=== PATIENT | male | born 1995 | race Caucasian/White ===

== ENCOUNTER 2018-07-12 18:15 | Emergency (ER) | payer SELFPAY ==
[2018-07-12 18:25] VITALS: BP 138/89; PULSE 100; RESP 20; TEMP 36.8; O2SAT 99
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
[2018-07-12] MEDS: Ketorolac 60 MG/2 ML VIAL IM (20:21)
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
[2018-07-12] MEDS: Lidocaine 5% Patch 2 PATCH TP (21:30)
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
== END 2018-07-12 21:39 | disposition home or self-care (01) ==
PROVIDERS: Emergency Provider Emergency Medicine; PCP Family Medicine
DX: S02.2XXA Fracture of nasal bones, initial encounter for closed fracture (principal); S22.31XA Fracture of one rib, right side, initial encounter for closed fracture; S22.32XA Fracture of one rib, left side, initial encounter for closed fracture; H11.32 Conjunctival hemorrhage, left eye; S00.83XA Contusion of other part of head, initial encounter; Y04.0XXA Assault by unarmed brawl or fight, initial encounter
CPT/HCPCS: 71250; 96372; 99284; 70450; 70486; J1885

== ENCOUNTER 2018-08-10 18:08 | Emergency (ER) | payer SELFPAY ==
[2018-08-10 18:11] VITALS: BP 142/80; PULSE 90; RESP 20; TEMP 36.8; O2SAT 97
--- NOTE | 2018-08-10 18:33 | ED.GENADUL_ITS ---
Discharge Plan Disposition Patient Disposition: HOME Condition: Stable Discharge Details Chief Complaint: Sorethroat Clinical Impression: Acute streptococcal pharyngitis Primary Care Provider: Emilee Turner ED Provider: Joey Romero Home Meds and New Rx's Prescriptions: New clindamycin HCl 150 mg capsule 450 mg PO TID 7 Days Qty: 63 RF: 0 No Action ibuprofen 600 mg tablet 600 mg PO TID PRN (Reason: pain) Qty: 30 RF: 0 Discharge Instructions Instructions: Pharyngitis (ED) Additional Instructions: if not better in a week see your primary care provider if you have difficulty breathing or inability to swallow liquids return to the emergency department Medical Decision Making 23 yo male who denies chronic med problems comes in with sore throat for about 5 days. Has posterior pharynx erythema, midline uvula, no restricted neck mvoements and no pain over hyoid, no stridor or drooling and speaking in full sentences, no findings to suggest rpa vs seating captain vs epiglotitis. His strep test is positive, will start abx. He states he can't take any med in pcn family due to anaphylaxxis, will tx with clindamycin Differential Diagnosis strep, viral pharyngitis HPI General Mode of arrival: ambulatory . Date/Time Provider Initiated Documentation: 08/10/18 18:29 . Limitations to Documentation: no limitations . Information obtained by: patient . History of Present Illness 23 year old M presents to the emergency department with the chief complaint of sore throat, described as moderate, Quality is described as aching, and is localized to the mouth. Patient reports no radiation. Patient started experiencing this day(s) (6) and it has been constant. No relieving factors improve symptom(s), No exacerbating factors reported . Patient did receive the following treatments prior to arrival, none Related Data Home Medications Medication Instructions Recorded Confirmed ibuprofen 600 mg PO TID PRN #30 tab 07/12/18 08/10/18 clindamycin HCl 450 mg PO TID 7 Days #63 cap 08/10/18 Previous Rx's Medication Instructions Recorded ibuprofen 600 mg PO TID PRN #30 tab 07/12/18 clindamycin HCl 450 mg PO TID 7 Days #63 cap 08/10/18 Allergies Allergy/AdvReac Type Severity Reaction Status Date / Time cefixime [From Suprax] Allergy Severe Anaphylaxsi Unverified 08/10/18 18:12 s General Stated Complaint: Sorethroat MICHOACANO: 4 Review of Systems Review of Systems All systems reviewed & are unremarkable except as noted in HPI and below Constitutional Denies chills, Denies fever(s) and Denies weakness Cardiovascular Denies chest pain and Denies dyspnea Respiratory Denies cough and Denies dyspnea Gastrointestinal Denies abdominal pain, Denies nausea and Denies vomiting Integumentary/Breasts Denies rash Neurologic Denies weakness [facility] Social History Smoking/Tobacco Use Status: Current every day Alcohol Intake: current Alcohol Intake frequency: a few times a week Substance use type: marijuana Do you feel safe at home: Yes Do you feel safe in your relationship?: Yes Exam Const General: no acute distress Orientation: alert HENMT Head: normal to inspection Ears: external ears normal General nose exam: external nose normal Mouth: moist mucous membranes Eyes General: appearance normal, both eyes and all related structures Neck Neck: normal visual inspection Resp Effort & Inspection: normal respiratory effort and able to speak in complete sentences Cardio Rate: regular rate Skin General skin exam: no rashes or lesions noted Neuro General: alert and oriented x3 Extrem General: normal to inspection Psych Mental Status: mental status grossly normal Course Vital Signs Temperature 36.8 C 08/10/18 18:11 Pulse 90 08/10/18 18:11 Respiratory Rate 20 08/10/18 18:11 Blood Pressure 142/80 H 08/10/18 18:11 Pulse Oximetry 97 08/10/18 18:11 Temperature 36.8 C 08/10/18 18:11 Temperature Source Temporal Artery Scan 08/10/18 18:11 Pulse 90 08/10/18 18:11 Respiratory Rate 20 08/10/18 18:11 Respiratory Effort Non-Labored 08/10/18 18:11 Blood Pressure 142/80 H 08/10/18 18:11 Pulse Oximetry 97 08/10/18 18:11 Pain Level 0 08/10/18 18:11 Lab/Test Results Lab/Test Results: POC Strep Test-MALIK(Rapid) Start: 08/10/18 18:17 Freq: Status: Active Protocol: Document 08/10/18 18:24 CDG (Rec: 08/10/18 18:24 CDG [id number]) Strep test-MALIK(Rapid)-POC POC-Strep test-MALIK (Rapid) Positive POC-Strep test-MALIK (Rapid) Positive
[2018-08-10 18:57] VITALS: BP 142/80; PULSE 90; RESP 20; TEMP 36.8; O2SAT 97
== END 2018-08-10 18:50 | disposition home or self-care (01) ==
PROVIDERS: Emergency Provider Emergency Medicine; PCP Family Medicine
DX: J02.0 Streptococcal pharyngitis (principal); F17.210 Nicotine dependence, cigarettes, uncomplicated
CPT/HCPCS: 87880; 99283

== ENCOUNTER 2018-10-10 03:09 | Emergency (ER) | payer SELFPAY ==
[2018-10-10] VITALS (10 sets, daily range): BP systolic 129–134; BP diastolic 69–73; PULSE 69–100; RESP 11–16; TEMP 36.7; O2SAT 96–100
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
--- NOTE | 2018-10-10 03:20 | ED.GENADUL_ITS ---
Discharge Plan Disposition Patient Disposition: HOME Condition: Stable Discharge Details Chief Complaint: Chest Pain Clinical Impression: Musculoskeletal chest pain Primary Care Provider: Emilee Turner ED Provider: Joey Romero Home Meds and New Rx's Prescriptions: No Action ibuprofen 600 mg tablet 600 mg PO TID PRN (Reason: pain) Qty: 30 RF: 0 Discharge Instructions Instructions: Lorazepam (By mouth) Additional Instructions: Your pain seemed most likely a muscle spasm being exacerbated by some anxiety Do not drink alcohol or drive if you take the lorazepam you can also take 1000mg tylenol and 600mg ibuprofen every 6 hours for discomfort if pain significantly worsens, you have difficulty breathing or you feel more ill return to the emergency department Medical Decision Making 23 yo male who states he has some hx of anxiety though not on meds, denies any chronic med problems, comes in with chief complaint of left sided chest pain he describes as a fist in the chest. He was pacing around all night debating wether to come in per pt. He denies fevers, sob, cough, has pain with palpation to the left side of his chest. Also notes tingling in the hands and feet. No abdominal tenderness. HE does appear anxious on exam and given the tingling in the hands and feet fits with likely anxiety/panic attack, will tx with ativan and reassess. EKG unremarkable, do not feel further workup for acs indicated, heart score is 1 with smoking hx and symptoms not typical of acs. WElls low and perc negative. No tearing back pain and normal vascular exam so doubt dissection. Will obtain cxr to eval for possble rib fx though unlikely given no trauma. HAs clear lungs so doubt ptx pt feeling better after ativan, ecg and cxr unremarkable on my read. Suspect either muscle spasm vs anxiety. Will d/c home and return precautions given Differential Diagnosis anxiety, muscle spasm, panic attack ECG Data Attestation: I personally reviewed and interpreted this ECG (s) as follows: Prior ECG tracings: not available for review Interpretation: sinus rhythm, rate of 70, pr 142, no acute st t wave ischemic findings HPI General Mode of arrival: ambulatory . Date/Time Provider Initiated Documentation: 10/10/18 03:10 . Limitations to Documentation: no limitations . Information obtained by: patient . History of Present Illness 23 year old M presents to the emergency department with the chief complaint of left sided chest pain, described as moderate, Quality is described as aching, Patient reports no radiation. Patient started experiencing this hour(s) (2) and it has been constant. No relieving factors improve symptom(s), No exacerbating factors reported . Patient notes other (hand and feet tingling). Patient did receive the following treatments prior to arrival, none Related Data Home Medications Medication Instructions Recorded Confirmed ibuprofen 600 mg PO TID PRN #30 tab 07/12/18 08/10/18 Previous Rx's Medication Instructions Recorded ibuprofen 600 mg PO TID PRN #30 tab 07/12/18 Allergies Allergy/AdvReac Type Severity Reaction Status Date / Time cefixime [From Suprax] Allergy Severe Anaphylaxsi Unverified 08/10/18 18:12 s General MICHOACANO: 4 Review of Systems Review of Systems All systems reviewed & are unremarkable except as noted in HPI and below Constitutional Denies chills, Denies fever(s) and Denies weakness Cardiovascular Denies dyspnea Respiratory Denies cough and Denies dyspnea Gastrointestinal Denies abdominal pain, Denies nausea and Denies vomiting Integumentary/Breasts Denies rash Neurologic Denies weakness [facility] Social History Smoking/Tobacco Use Status: Current every day Tobacco Type: cigarettes Smoking cigarettes per day: 10 Alcohol Intake: current Alcohol Intake frequency: a few times a week Drug use: Occasionally Substance use type: marijuana Do you feel safe at home: Yes Do you feel safe in your relationship?: Yes Exam Const General: anxious Orientation: alert HENMT Head: normal to inspection Ears: external ears normal General nose exam: external nose normal Mouth: moist mucous membranes Eyes General: appearance normal, both eyes and all related structures Neck Neck: normal visual inspection Resp Effort & Inspection: normal respiratory effort and able to speak in complete sentences Cardio Rate: regular rate Skin General skin exam: no rashes or lesions noted Neuro General: alert and oriented x3 Extrem General: normal to inspection Psych Mental Status: mental status grossly normal
[2018-10-10] MEDS: LORazepam 1 MG TAB PO (03:23)
--- NOTE | 2018-10-10 03:30 | DI.RAD_ITS ---
SYMPTOM/DIAGNOSIS: LEFT SIDED CHEST PAIN PA AND LATERAL CHEST: Cardiac and mediastinal contours have a normal appearance. The lungs are well inflated and clear. No infiltrate, effusion or pneumothorax is seen. IMPRESSION: Negative chest x-ray.
--- NOTE | 2018-10-10 04:42 | DI.VRAD_ITS ---
EXAM: XR Chest, 2 Views EXAM DATE/TIME: 10/10/2018 3:14 AM CLINICAL HISTORY: 23 years old, male; Left-sided chest pain; Patient HX: Left sided chest pain, smoker TECHNIQUE: Imaging protocol: XR of the chest, 2 views. COMPARISON: CT CHEST WO 07/12/2018 8:13 PM FINDINGS: Lungs: Unremarkable. No consolidation. Pleural space: Unremarkable. No pleural effusion. No pneumothorax. Heart/Mediastinum: Unremarkable. No cardiomegaly. Bones/joints: Unremarkable. IMPRESSION: No acute findings. Dictated and Authenticated by: Joey Chiang MD. Ordering:PONCE Cook MD
== END 2018-10-10 04:17 | disposition home or self-care (01) ==
PROVIDERS: Emergency Provider Emergency Medicine; PCP Family Medicine
DX: R07.89 Other chest pain (principal); F41.9 Anxiety disorder, unspecified
CPT/HCPCS: 93005; 99283; 71046; 93010